=== PATIENT | female | born 1955 | race Caucasian/White ===

== ENCOUNTER 2016-11-24 23:00 | Emergency (ER) | payer MEDICAID ==
[~2016-11-24] VITALS: Ht 165.1 cm; Wt 54.0 kg
[2016-11-24 23:18] VITALS: BP 127/70
[2016-11-25] MEDS ORDERED: IBUPROFEN 600 MG TABLET PO ONE
[2016-11-25] MEDS ORDERED: KETOROLAC TROMETHAMINE 60 MG/2 ML VIAL IM ONE
== END 2016-11-25 00:23 | disposition home or self-care (01) ==
LOC: EMS 23:03
DX: S93.401A Sprain of unspecified ligament of right ankle, initial encounter (principal); Z88.6 Allergy status to analgesic agent; Z88.5 Allergy status to narcotic agent; W18.40XA Slipping, tripping and stumbling without falling, unspecified, initial encounter; Y93.89 Activity, other specified; Y92.89 Other specified places as the place of occurrence of the external cause; Y99.8 Other external cause status
CPT/HCPCS: 99284